=== PATIENT | female | born 1995 | race Caucasian/White ===

== ENCOUNTER 2017-09-16 13:50 | Emergency (ER) | payer OTHER ==
[2017-09-16 15:08] LABS: URINE BLOOD (Dip) POC Trace-intact (NEGATIVE); URINE GLUCOSE (Dip) POC Negative (NEGATIVE); URINE KETONES (Dip) POC 2+ (NEGATIVE); URINE LEUKOCYTE EST (Dip) POC 1+ (NEGATIVE); URINE NITRITE (Dip) POC Negative (NEGATIVE); URINE TOTAL PROTEIN POC 1+ (NEGATIVE)
== END 2017-09-16 17:24 | disposition home or self-care (01) ==
LOC: FTE 13:50
DX: O26.891 Other specified pregnancy related conditions, first trimester (principal); R10.2 Pelvic and perineal pain; Z3A.01 Less than 8 weeks gestation of pregnancy
CPT/HCPCS: 76801; 81003; 81025; 99284-25

== ENCOUNTER 2018-02-28 12:25 | Inpatient (IN) | payer OTHER ==
[2018-02-28 13:06] LABS: ADD UMIC YES; UR ASCORBIC ACID 40 mg/dL (NEGATIVE); UR BILIRUBIN (Dip) NEGATIVE (NEGATIVE); UR BLOOD (Dip) NEGATIVE (NEGATIVE); UR CLARITY SLIGHTLY CLOUDY (CLEAR); UR COLOR YELLOW (YELLOW); UR GLUCOSE (Dip) NEGATIVE (NEGATIVE); UR KETONES (Dip) TRACE mg/dL (NEGATIVE); UR LEUKOCYTE ESTERASE (Dip) 3+ Leu/ul (NEGATIVE); UR MUCUS FEW /HPF (NONE SEEN); UR NITRITE (Dip) NEGATIVE (NEGATIVE); UR RBC 2 /HPF (0-5); UR SPECIFIC GRAVITY (Dip) 1.034 (1.003-1.030); UR SQUAMOUS EPITHELIAL CELL FEW /HPF (FEW); UR TOTAL PROTEIN (Dip) 1+ mg/dl (NEGATIVE); UR UROBILINOGEN (Dip) 1+ mg/dL (NEGATIVE); UR WBC 18 /HPF (0-5)
[2018-02-28 13:29] LABS: AMPHETAMINE/METHAMPHETAMINE NEGATIVE (NEGATIVE); BARBITURATES NEGATIVE (NEGATIVE); BENZODIAZEPINES NEGATIVE (NEGATIVE); CANNABINOIDS NEGATIVE (NEGATIVE); COCAINE NEGATIVE (NEGATIVE); OPIATES NEGATIVE (NEGATIVE)
[2018-02-28] MEDS: CEFAZOLIN 2 GM/50 ML (PMX) 50 ML IVPB ×2 (14:00→15:54)
[2018-02-28] MEDS ORDERED: ACETAMINOPHEN 325 MG TAB PO (14:00)
[2018-02-28] MEDS: LACTATED RINGER'S 1,000 ML IV ×2 (15:42→22:08)
[2018-02-28 17:46] LABS: ADD MAN DIFF? NO
[2018-02-28 17:49] LABS: BASOPHILS % 0.2 % (0.0-2.0); EOSINOPHILS # 0.2 10^3/ul (0.0-0.5); EOSINOPHILS % 1.9 % (0.0-7.0); LYMPHOCYTES # 1.7 10^3/ul (0.8-2.9); LYMPHOCYTES % 17.6 % (15.0-51.0); MEAN CORPUSCULAR HEMOGLOBIN 24.2 pg (29.0-33.0); MEAN CORPUSCULAR HGB CONC 31.3 g/dl (32.0-37.0); MEAN CORPUSCULAR VOLUME 77.3 fl (82.0-101.0); MEAN PLATELET VOLUME 11.6 fl (7.4-10.4); MONOCYTE # 0.7 10^3/ul (0.3-0.9); MONOCYTES % 7.4 % (0.0-11.0); NEUTROPHIL # 7.1 10^3/ul (1.6-7.5); NEUTROPHILS % 72.1 % (39.0-77.0); PLATELET COUNT 109 10^3/UL (140-415); RED BLOOD COUNT 4.14 10^6/ul (4.20-5.40); RED CELL DISTRIBUTION WIDTH 14.9 % (11.5-14.5)
[2018-02-28 17:49] LABS: WHITE BLOOD COUNT 9.8 10^3/ul (4.8-10.8)
[2018-02-28 18:08] LABS: INR 0.91; PROTIME 12.4 Sec (11.9-14.9)
[2018-02-28 18:09] LABS: PARTIAL THROMBOPLASTIN TIME 24.5 Sec (23.0-35.0)
[2018-02-28 18:14] LABS: ALANINE AMINOTRANSFERASE 13 IU/L (13-69); ALBUMIN 3.3 g/dl (3.3-4.9); ALKALINE PHOSPHATASE 94 IU/L (42-121); ANION GAP 11 (5-13); ASPARTATE AMINO TRANSFERASE 14 IU/L (15-46); BILIRUBIN,INDIRECT 0.1 mg/dl (0-1.1); BILIRUBIN,TOTAL 0.1 mg/dl (0.2-1.3); BLOOD UREA NITROGEN 6 mg/dl (7-20); CALCIUM 8.1 mg/dl (8.4-10.2); CARBON DIOXIDE 24 mmol/L (21-31); CHLORIDE 104 mmol/L (97-110); CREATININE 0.48 mg/dl (0.44-1.00); Estimated GFR > 60 mL/min (>60); GLUCOSE 79 mg/dl (70-220); POTASSIUM 3.6 mmol/L (3.5-5.1); SODIUM 139 mmol/L (135-144); TOTAL PROTEIN 6.6 g/dl (6.1-8.1)
[2018-02-28] MEDS: BETAMET NA PHOS/AC(6 MG/ML) 2 ML INJ SYG IM (18:23)
[2018-02-28 18:45] LABS: HEPATITIS B SURFACE ANTIGEN NEGATIVE (NEGATIVE)
[2018-02-28] MEDS: NITROFURANTOIN (SR) 100 MG CAP PO (22:07)
[2018-03-01 00:21] LABS: HIV 1&2 ANTIBODY NEGATIVE (NEGATIVE)
[2018-03-01] MEDS: LACTATED RINGER'S 1,000 ML IV ×3 (05:44→21:48)
[2018-03-01] MEDS: NITROFURANTOIN (SR) 100 MG CAP PO ×2 (08:41→21:07)
[2018-03-01] MEDS: PRENATAL VITAMIN PO (08:41)
[2018-03-01 11:52] LABS: RUBELLA ANTIBODY - IGG 1.96 index
[2018-03-01 14:54] LABS: HEMOGLOBIN A1C 5.6 % (0-5.9)
[2018-03-01 15:03] LABS: RAPID PLASMA REAGIN NONREACTIVE (NR)
[2018-03-01] MEDS: INSULIN ASPART [NOVOLOG] 3 ML PEN SC ×2 (17:35→21:00)
[2018-03-01] MEDS: BETAMET NA PHOS/AC(6 MG/ML) 2 ML INJ SYG IM ×2 (17:40→22:27)
[2018-03-01] MEDS: ACCU-CHEK XX ×3 (17:41→20:53)
[2018-03-01] MEDS: CEFAZOLIN 1 GM/50 ML (PMX) 50 ML IVPB (22:06)
[2018-03-02] MEDS: CEFAZOLIN 1 GM/50 ML (PMX) 50 ML IVPB ×2 (06:01→14:06)
[2018-03-02] MEDS: PRENATAL VITAMIN PO (08:58)
[2018-03-03 12:27] LABS: RUBELLA ANTIBODY - IGM <20.00 AU/mL
== END 2018-03-02 15:57 | disposition home or self-care (01) | DRG 832 ==
LOC: OBT 12:25 → L-D 12:27 → OBT 13:50 → L-D 13:50 → PP1 17:19
DX: O40.3XX0 Polyhydramnios, third trimester, not applicable or unspecified (principal); O23.43 Unspecified infection of urinary tract in pregnancy, third trimester; Z3A.30 30 weeks gestation of pregnancy
CPT/HCPCS: 76815; 76817; 76818; 80053; 80307; 81001; 82962; 83036; 85025; 85610; 85730; 86592; 86703; 86762; 86900; 86901; 87086; 87340

== ENCOUNTER 2018-03-27 14:53 | Outpatient (CLI) | payer OTHER | END 2018-03-27 16:40 | disposition home or self-care (01) | LOC: OBT 14:53 → L-D 14:53 → OBT 16:40 | DX: O26.843 Uterine size-date discrepancy, third trimester (principal); Z3A.33 33 weeks gestation of pregnancy | CPT/HCPCS: 76815; 76818 ==

== ENCOUNTER 2018-04-22 09:14 | Inpatient (IN) | payer OTHER ==
[2018-04-22] MEDS ORDERED: LIDOCAINE 1% (MPF) 30 ML INJ (09:54)
[2018-04-22] MEDS ORDERED: MISOPROSTOL 200 MCG TAB PR ×2 (10:00→13:30)
[2018-04-22] MEDS ORDERED: OXYTOCIN 30 UNITS/LR 500 ML IV ×3 (10:00→13:30)
[2018-04-22] MEDS ORDERED: CARBOPROST 250 MCG INJ IM ×2 (10:00→13:30)
[2018-04-22] MEDS ORDERED: METHYLERGONOVINE 0.2 MG INJ IM ×2 (10:00→13:30)
[2018-04-22] MEDS ORDERED: BUTORPHANOL 2 MG INJ IV (10:00)
[2018-04-22 10:51] LABS: ADD MAN DIFF? NO
[2018-04-22 10:54] LABS: WHITE BLOOD COUNT 11.2 10^3/ul (4.8-10.8)
[2018-04-22 10:54] LABS: ABNORMAL IP MESSAGE 1; BASOPHILS % 0.4 % (0.0-2.0); EOSINOPHILS # 0.2 10^3/ul (0.0-0.5); EOSINOPHILS % 1.8 % (0.0-7.0); HEMATOCRIT 37.9 % (37.0-47.0); HEMOGLOBIN 11.9 g/dl (12.0-16.0); LYMPHOCYTES # 1.3 10^3/ul (0.8-2.9); LYMPHOCYTES % 11.8 % (15.0-51.0); MEAN CORPUSCULAR HEMOGLOBIN 24.6 pg (29.0-33.0); MEAN CORPUSCULAR HGB CONC 31.4 g/dl (32.0-37.0); MEAN CORPUSCULAR VOLUME 78.3 fl (82.0-101.0); MONOCYTE # 0.8 10^3/ul (0.3-0.9); MONOCYTES % 7.2 % (0.0-11.0); NEUTROPHIL # 8.7 10^3/ul (1.6-7.5); NEUTROPHILS % 77.6 % (39.0-77.0); PLATELET COUNT 98 10^3/UL (140-415); RED BLOOD COUNT 4.84 10^6/ul (4.20-5.40); RED CELL DISTRIBUTION WIDTH 19.1 % (11.5-14.5)
[2018-04-22] MEDS: LACTATED RINGER'S 1,000 ML IV ×2 (10:55→10:56)
[2018-04-22 11:08] LABS: POSITIVE DIFF @See below
[2018-04-22 11:19] LABS: ALBUMIN 3.4 g/dl (3.3-4.9); ALBUMIN/GLOBULIN RATIO 1.13; ALKALINE PHOSPHATASE 165 IU/L (42-121); ANION GAP 8 (5-13); ASPARTATE AMINO TRANSFERASE 16 IU/L (15-46); BILIRUBIN,INDIRECT 0.1 mg/dl (0-1.1); BILIRUBIN,TOTAL 0.1 mg/dl (0.2-1.3); BLOOD UREA NITROGEN 7 mg/dl (7-20); CALCIUM 8.2 mg/dl (8.4-10.2); CARBON DIOXIDE 22 mmol/L (21-31); CHLORIDE 109 mmol/L (97-110); CREATININE 0.54 mg/dl (0.44-1.00); Estimated GFR > 60 mL/min (>60); GLUCOSE 77 mg/dl (70-220); POTASSIUM 3.8 mmol/L (3.5-5.1); SODIUM 139 mmol/L (135-144); TOTAL PROTEIN 6.4 g/dl (6.1-8.1)
[2018-04-22 11:21] LABS: ALANINE AMINOTRANSFERASE < 6 IU/L (13-69)
[2018-04-22 11:35] LABS: INR 0.87; PROTIME 11.9 Sec (11.9-14.9); PT RATIO 0.9
[2018-04-22 11:36] LABS: PARTIAL THROMBOPLASTIN TIME 24.9 Sec (23.0-35.0)
[2018-04-22] MEDS: OXYTOCIN 30 UNITS/LR 500 ML IV ×3 (12:34→16:00)
[2018-04-22] MEDS: LIDOCAINE 1% (MPF) 30 ML INJ INJ (12:37)
[2018-04-22 13:02] LABS: HEPATITIS B SURFACE ANTIGEN NEGATIVE (NEGATIVE)
[2018-04-22] MEDS ORDERED: SENNA/DOCUSATE NA (8.6MG/50MG) TAB PO (13:30)
[2018-04-22] MEDS ORDERED: LANOLIN HPA 1 PKT TOP (13:30)
[2018-04-22] MEDS ORDERED: DIBUCAINE 1% 30 GM OINT TOP (13:30)
[2018-04-22] MEDS ORDERED: ACETAMINOPHEN 325 MG TAB PO ×2 (13:30)
[2018-04-22] MEDS ORDERED: ONDANSETRON 4 MG INJ IV (13:30)
[2018-04-22 13:58] LABS: ADD MAN DIFF? NO
[2018-04-22] MEDS ORDERED: AMPICILLIN 1 GM/NS (PMX) 50 ML IV (14:00)
[2018-04-22 14:02] LABS: ABNORMAL IP MESSAGE 1; BASOPHILS % 0.1 % (0.0-2.0); EOSINOPHILS % 0.1 % (0.0-7.0); HEMATOCRIT 36.7 % (37.0-47.0); HEMOGLOBIN 11.5 g/dl (12.0-16.0); LYMPHOCYTES # 0.7 10^3/ul (0.8-2.9); LYMPHOCYTES % 4.5 % (15.0-51.0); MEAN CORPUSCULAR HEMOGLOBIN 24.4 pg (29.0-33.0); MEAN CORPUSCULAR HGB CONC 31.3 g/dl (32.0-37.0); MEAN CORPUSCULAR VOLUME 77.8 fl (82.0-101.0); MEAN PLATELET VOLUME 12.3 fl (7.4-10.4); MONOCYTE # 0.7 10^3/ul (0.3-0.9); MONOCYTES % 4.6 % (0.0-11.0); NEUTROPHILS % 90.1 % (39.0-77.0); PLATELET COUNT 93 10^3/UL (140-415); RED BLOOD COUNT 4.72 10^6/ul (4.20-5.40); RED CELL DISTRIBUTION WIDTH 19.1 % (11.5-14.5)
[2018-04-22 14:02] LABS: WHITE BLOOD COUNT 14.5 10^3/ul (4.8-10.8)
[2018-04-22 14:09] LABS: POSITIVE DIFF @See below
[2018-04-22 15:06] LABS: RAPID PLASMA REAGIN NONREACTIVE (NR)
[2018-04-22] MEDS: AMPICILLIN 2 GM/NS (PMX) 100 ML IV (15:42)
[2018-04-22] MEDS: DEXTROSE 5%-LR 1,000 ML IV (15:42)
[2018-04-22 15:54] LABS: AMPHETAMINE/METHAMPHETAMINE Negative (NEGATIVE); BARBITURATES Negative (NEGATIVE); BENZODIAZEPINES Negative (NEGATIVE); CANNABINOIDS Negative (NEGATIVE); COCAINE Negative (NEGATIVE); OPIATES Negative (NEGATIVE)
[2018-04-22] MEDS: BENZOCAINE 20% 56 ML SPRAY TOP (15:56)
[2018-04-22] MEDS: WITCH HAZEL/GLYCERIN PAD PR (15:56)
[2018-04-22] MEDS: IBUPROFEN 600 MG TAB PO (15:57)
[2018-04-22] MEDS: LACTATED RINGER'S 1,000 ML IV* (18:12)
[2018-04-23] MEDS: IBUPROFEN 600 MG TAB PO ×3 (05:34→18:07)
[2018-04-23 07:49] LABS: ADD MAN DIFF? NO
[2018-04-23 07:54] LABS: ABNORMAL IP MESSAGE 1; BASOPHILS % 0.4 % (0.0-2.0); EOSINOPHILS # 0.2 10^3/ul (0.0-0.5); EOSINOPHILS % 2.6 % (0.0-7.0); HEMATOCRIT 31.2 % (37.0-47.0); HEMOGLOBIN 9.8 g/dl (12.0-16.0); LYMPHOCYTES # 1.4 10^3/ul (0.8-2.9); LYMPHOCYTES % 16.4 % (15.0-51.0); MEAN CORPUSCULAR HEMOGLOBIN 25.1 pg (29.0-33.0); MEAN CORPUSCULAR HGB CONC 31.4 g/dl (32.0-37.0); MEAN PLATELET VOLUME 13.1 fl (7.4-10.4); MONOCYTE # 0.8 10^3/ul (0.3-0.9); NEUTROPHILS % 70.5 % (39.0-77.0); RED CELL DISTRIBUTION WIDTH 19.5 % (11.5-14.5)
[2018-04-23 07:54] LABS: WHITE BLOOD COUNT 8.5 10^3/ul (4.8-10.8)
[2018-04-23 08:06] LABS: PLATELET COUNT 87 10^3/UL (140-415); POSITIVE DIFF @See below
[2018-04-23] MEDS: MAGNESIUM HYDROXIDE 30ML CUP PO (20:36)
[2018-04-24] MEDS: IBUPROFEN 600 MG TAB PO ×2 (00:19→11:54)
[2018-04-25 11:52] LABS: RUBELLA ANTIBODY - IGM <20.00 AU/mL
[2018-04-25 12:37] LABS: RUBELLA ANTIBODY - IGG 1.54 index
== END 2018-04-24 14:15 | disposition home or self-care (01) | DRG 806 ==
LOC: OBT 09:14 → L-D 09:14 → OBT 09:40 → L-D 09:40 → PP1 15:06
PROC: 10E0XZZ Delivery of Products of Conception, External Approach (ICD-10-PCS; principal; 2018-04-22)
PROC: 0HQ9XZZ Repair Perineum Skin, External Approach (ICD-10-PCS; 2018-04-22)
DX: O24.420 Gestational diabetes mellitus in childbirth, diet controlled (principal); O99.12 Other diseases of the blood and blood-forming organs and certain disorders involving the immune mechanism complicating childbirth; Z37.0 Single live birth; D69.6 Thrombocytopenia, unspecified; O70.0 First degree perineal laceration during delivery; Z3A.38 38 weeks gestation of pregnancy
CPT/HCPCS: 76815; 80053; 80307; 82962; 85025; 85610; 85730; 86592; 86762; 86850; 86900; 86901; 87340; 87536